=== PATIENT | male | born 1985 | race Two or more races ===

== ENCOUNTER 2016-12-27 20:56 | Emergency (ER) | payer OTHER ==
[~2016-12-27] VITALS: Ht 157.5 cm; Wt 59.0 kg
[2016-12-27 21:40] VITALS: BP 110/59
[2016-12-27] MEDS ORDERED: CLIN-44 PO (22:23)
--- NOTE | 2016-12-27 22:23 | PHYS DOC ---
Past Medical History Past Medical History: No Pertinent History Past Surgical History: No Surgical History Alcohol Use: None Drug Use: None Adult General Chief Complaint Chief Complaint: SKIN PROBLEM HPI HPI Patient is a 31 year old male with no significant medical history who presents with left axilla abscess for couple days. Patient states he poked it yesterday and drained some "nasty stuff" from it. Patient denies any fever. Review of Systems Review of Systems Constitutional: Denies fever or chills [] Musculoskeletal: Denies back pain or joint pain [] Integument: Left axilla abscess Neurologic: Denies headache, focal weakness or sensory changes [] Endocrine: Denies polyuria or polydipsia [] Current Medications Current Medications Current Medications Medications (Trade) Dose Ordered Sig/Shadia Start Time Stop Time Status Last Admin Dose Admin Clindamycin HCl (Cleocin) 450 mg 1X ONCE 12/27/16 22:30 12/27/16 22:31 DC 12/27/16 22:19 450 MG Diphtheria/ Tetanus/Acell Pertussis (Boostrix) 0.5 ml ONCE ONCE 12/27/16 22:30 12/27/16 22:31 DC 12/27/16 22:20 0.5 ML Allergies Allergies Allergies Coded Allergies Type Severity Reaction Last Updated Verified No Known Drug Allergies 12/27/16 No Physical Exam Physical Exam Constitutional: Well developed, well nourished, no acute distress, non-toxic appearance. [] HENT: Normocephalic, atraumatic, bilateral external ears normal, oropharynx moist, no oral exudates, nose normal. [] Eyes: PERRLA, EOMI, conjunctiva normal, no discharge. [] Skin: Left axilla with an indurated area approximately 2 x 1 cm. The area has erythema. It's tender to touch and warm but not fluctuant. Back: No tenderness, no CVA tenderness. [] Extremities: No tenderness, no cyanosis, no clubbing, ROM intact, no edema. [] Neurologic: Alert and oriented X 3, normal motor function, normal sensory function, no focal deficits noted. [] Psychologic: Affect normal, judgement normal, mood normal. [] Current Patient Data Vital Signs Vital Signs Date Time Temp Pulse Resp B/P (MAP) Pulse Ox O2 Delivery O2 Flow Rate FiO2 12/27/16 21:40 98.1 87 16 97 Room Air 98.1 EKG EKG [] Radiology/Procedures Radiology/Procedures [] Course & Med Decision Making Course & Med Decision Making Pertinent Labs and Imaging studies reviewed. (See chart for details) Patient has an abscess of the left axilla which he popped it yesterday and drained. There is nothing to drain today. The area is still intubated with no fluctuance. He was instructed to apply warm compresses to the area. Given tetanus in the ED. Discharged with clindamycin. Provided return precautions and discharged in stable condition. Dragon Disclaimer Dragon Disclaimer This electronic medical record was generated, in whole or in part, using a voice recognition dictation system. Departure Departure Impression: Primary Impression: Abscess of left axilla Disposition: HOME, SELF-CARE Condition: STABLE Referrals: NO PCP (PCP) ROLANDO MCFADDEN MD Follow-up with your own doctor or the provided doctor in 1-2 weeks Patient Instructions: Abscess Additional Instructions: You were seen for an abscess of the left axilla. Keep the area clean and dry. You can shower. Apply warm compresses to the area twice a day. You can buy over- the-counter PRED and apply to the area to help bring it to a head. If it comes to head come back to the ED and we will drain it. We sent you home with antibiotics. Ensure you complete them. Follow-up with your doctor in the next 1- 2 weeks. Scripts Clindamycin Hcl (CLINDAMYCIN HCL) 150 Mg Capsule 3 CAP PO TID, #90 CAP Prov: SETH GASTELUM APRN 12/27/16 SETH GASTELUM APRN December 27, 2016 22:23
[2016-12-27] MEDS ORDERED: DIPHTH,PERTUSS(ACELL),TET TOX 0.5 ML DISP.SYRIN. VAX IM ONE (22:30)
[2016-12-27] MEDS ORDERED: CLINDAMYCIN HCL 150 MG CAPSULE. PO ONE (22:30)
== END 2016-12-27 22:44 | disposition home or self-care (01) ==
LOC: ER 20:56
DX: L02.412 Cutaneous abscess of left axilla (principal)
CPT/HCPCS: 90471; 90715; 99283-25